=== PATIENT | male | born 1950 | race Caucasian/White ===

== ENCOUNTER 2024-10-25 10:43 | Outpatient (RCR) | payer MEDICARE, SELFPAY ==
--- NOTE | 2024-10-25 12:07 | PTOPEVAL1 ---
Assessment and note entered by Salomon Loaiza Evaluation Information Assessment Status Evaluation ICD-10 Condition Codes (PT) Pain in low back M54.50,Radiculopathy, lumbar region M54.16 Onset 08/25/24 Subjective Information Pt. reports that he started developing pain into the low back about 6 months ago. He reports that over the past couple months he began to develop pain radiating into the left leg. He describes soreness through the left gluteal region and into the greater trochanter. He reports that pain is worsened with long periods of standing and trying to lay on the left side. He states that 6 months ago he was performing light yard work and household duties, however cannot comfortably and safely do those activities at this time. Pain is not constant. He reports that his goal is to decrease his low back and buttock pain. Reported Pain Level Pain Score 4: Self Report Assessment PT Clinical Summary Pt. is a 73 year old male who enters the clinic with lumbar radiculopathy. He presents with proximal l.e. weakness, impaired gait, impaired balance, impaired postural awareness, functional decline and pain. Continued skilled PT is indicated in order to improve these areas to allow for improved comfort and efficiency with IADL's. Plan of Care Interventions Hot Pack/Cold Pack,Mechanical Traction,Neuro Re- education,Patient/Caregiver Education,Therapeutic Activities,Therapeutic Exercise PT Services Indicated Yes Treatment Frequency and 2x/week x 10 visits Duration These treatments will address the objective and functional deficits as defined above. The patient will be advanced safely and appropriately in order for the patient to progress towards his/her prior level of function. Additional exercises will be introduced and as well as a comprehensive home exercise program upon discharge, if needed, ?to ensure carryover of functional gains achieved in the clinic. This treatment plan has been reviewed and agreement upon by the patient.
--- NOTE | 2024-10-25 12:08 | OPREHPOC ---
Outpatient Therapy Plan of Care This is a Multidisciplinary Plan of Care that may contain components documented by all disciplines (PT, OT, and ST.) PT Problem 1 PT Problem #1 Knowledge Deficit PT Goal 1 Goal / Goal Update Pt. will be independent with a HEP focusing on l.e . strength Target Visit 2 PT Problem 2 PT Problem #2 Impaired Balance PT Goal 1 Goal / Goal Update Pt. will improve his Tinetti score to 24 or greater Target Visit 10 PT Problem 3 PT Problem #3 Impaired Gait PT Goal 1 Goal / Goal Update Pt. will be able to safely navigate outdoor terrain to perform household activities safely for duration of 5-10 minutes Target Visit 10 PT Problem 4 PT Problem #4 Impaired Strength PT Goal 1 Goal / Goal Update Pt. will present with 4/5 gross l.e. strength in order to improve standing endurance and stability. Target Visit 10
--- NOTE | 2024-10-29 09:07 | PCPTNOTE ---
Cancelled session due to knee pain. Pt states he is going to the hospital and will let us know if he can reschedule.
--- NOTE | 2024-12-01 14:53 | OPREHPOC ---
Outpatient Therapy Plan of Care This is a Multidisciplinary Plan of Care that may contain components documented by all disciplines (PT, OT, and ST.) PT Problem 1 PT Problem #1 Knowledge Deficit PT Goal 1 Goal / Goal Update Pt. will be independent with a HEP focusing on l.e . strength Target Visit 4 PT Problem 2 PT Problem #2 Impaired Balance PT Goal 1 Goal / Goal Update Pt. will improve his Tinetti score to 24 or greater Target Visit 10 PT Problem 3 PT Problem #3 Impaired Gait PT Goal 1 Goal / Goal Update Pt. will be able to safely navigate outdoor terrain to perform household activities safely for duration of 5-10 minutes Target Visit 10 PT Problem 4 PT Problem #4 Impaired Strength PT Goal 1 Goal / Goal Update Pt. will present with 4/5 gross l.e. strength in order to improve standing endurance and stability. Target Visit 10
--- NOTE | 2024-12-01 14:53 | PTOPREEVAL ---
Assessment and note entered by JT File, PT Evaluation Information Assessment Status Re-evaluation ICD-10 Condition Codes (PT) Pain in low back M54.50,Radiculopathy, lumbar region M54.16 Onset 08/25/24 Subjective Information patient reports he had to take a break from therapy after his initial evaluation. he reports he had a severe flare up of pain in the R knee. he reports he had to get xrays and an injection. he reports the knee is better now, but his legs have gotten weaker. Reported Pain Level Pain Score 3,5: Self Report Assessment PT Clinical Summary mr. martin returns to skilled PT a little over a month since his initial evaluation. he has been away tending to an issue with his R knee. he is now back to skilled PT hoping to improve his strength, mobility, balance, and ambulation. his symptoms are now worse in the R LE compared to the L LE, and in general his LE's have gotten weaker. continued skilled PT is indicated to achieve his functional goals and improved quality of life. Plan of Care Interventions Hot Pack/Cold Pack,Mechanical Traction,Neuro Re- education,Patient/Caregiver Education,Therapeutic Activities,Therapeutic Exercise PT Services Indicated Yes Treatment Frequency and continue per initial POC Duration These treatments will address the objective and functional deficits as defined above. The patient will be advanced safely and appropriately in order for the patient to progress towards his/her prior level of function. Additional exercises will be introduced and as well as a comprehensive home exercise program upon discharge, if needed, ?to ensure carryover of functional gains achieved in the clinic. This treatment plan has been reviewed and agreement upon by the patient.
--- NOTE | 2024-12-28 14:01 | PTOPREEVAL ---
Assessment and note entered by Raissa Leach DPT Evaluation Information Assessment Status Evaluation ICD-10 Condition Codes (PT) Pain in low back M54.50,Radiculopathy, lumbar region M54.16 Onset 08/25/24 Subjective Information patient reports he has improved since start of PT. He reports that he is able to walk for longer periods of time but is still limited. he reports standing and navigating steps are also improved but he still struggles. he reports pain is much less. he reports he does his HEP. Reported Pain Level Pain Score 0,0: Self Report Assessment PT Clinical Summary Mr. Gonzalez has been seen for 10 visits of skilled PT with good progress towards goals. He demonstrates improved B LE and improved balance this date although he still displays deficits. He reports improved ability to ambulate prolonged distances but is still limited. He also reports continued difficulty with stair navigation. He would benefit from continued skilled PT to address remaining impairments and return to PLOF. Plan of Care Interventions Hot Pack/Cold Pack,Mechanical Traction,Neuro Re- education,Patient/Caregiver Education,Therapeutic Activities,Therapeutic Exercise PT Services Indicated Yes Treatment Frequency and continue 2x weekly for 8 additional visits Duration These treatments will address the objective and functional deficits as defined above. The patient will be advanced safely and appropriately in order for the patient to progress towards his/her prior level of function. Additional exercises will be introduced and as well as a comprehensive home exercise program upon discharge, if needed, ?to ensure carryover of functional gains achieved in the clinic. This treatment plan has been reviewed and agreement upon by the patient.
--- NOTE | 2025-01-20 16:16 | OPREHPOC ---
Outpatient Therapy Plan of Care This is a Multidisciplinary Plan of Care that may contain components documented by all disciplines (PT, OT, and ST.) PT Problem 1 PT Problem #1 Knowledge Deficit PT Goal 1 Goal / Goal Update Pt. will be independent with a HEP focusing on l.e . strength Target Visit 4 Progress Met PT Problem 2 PT Problem #2 Impaired Balance PT Goal 1 Goal / Goal Update Pt. will improve his Tinetti score to 24 or greater Target Visit 18 Progress Not Met PT Goal 2 Goal / Goal Update improved PT Problem 3 PT Problem #3 Impaired Gait PT Goal 1 Goal / Goal Update Pt. will be able to safely navigate outdoor terrain to perform household activities safely for duration of 5-10 minutes Target Visit 18 Progress Met PT Goal 2 Goal / Goal Update reports improvement PT Problem 4 PT Problem #4 Impaired Strength PT Goal 1 Goal / Goal Update Pt. will present with 4/5 gross l.e. strength in order to improve standing endurance and stability. Target Visit 18 Progress Met
--- NOTE | 2025-01-20 16:16 | PTOPDC ---
Assessment and note entered by Halie Kearns, PT Evaluation Information Assessment Status Discharge ICD-10 Condition Codes (PT) Pain in low back M54.50,Radiculopathy, lumbar region M54.16 Onset 08/25/24 Subjective Information Edilson reports continued improvements in LE strength and balance. He still has numbness in his legs that impairs his ability to walk long distances but he states this is manageable because he plans out when and where he'll take a rest break. He feels much more balanced and steady on his feet when walking and has transitioned to using a cane for balance. He's been able to get outside to do some work picking up sticks and he does this seated, and reports he can withstand doing outside work for a long while as long as he's sitting. Reported Pain Level Pain Score 0: Self Report Assessment PT Clinical Summary Mr. Gonzalez has attended 17 total skilled PT visits addressing low back pain, LE strengthening and balance. His back pain is negligible and he has made good improvements in his LE strength that allows him to better tolerate walking and outdoor activities. Per [place] Mr. Gonzalez is still at high risk of falls however he feels more steady on his feet and has been able to transition to a cane for balance during ambulation. He has been independent with his HEP and has met nearly all therapeutic goals set for him, therefore skilled PT intervention is no longer indicated. Plan of Care PT Services Indicated No
== END 2025-01-20 16:24 | disposition home or self-care (01) ==
LOC: CHSPT 10:43
DX: M79.18 Myalgia, other site (principal)
CPT/HCPCS: 97110; 97112; 97116; 97140; 97150; 97161; 97530